=== PATIENT | female | born 1960 | race Caucasian/White ===

== ENCOUNTER 2016-06-20 08:00 | Inpatient (IN) | payer MEDICAID ==
[~2016-06-20] VITALS: Ht 167.6 cm; Wt 70.0 kg
[~2016-06-20 08:00] MED LIST: ALPR0.254 PO; CARV3.1240 PO; FURO40TA PO; GLIM1TAB2 PO; OMEP20CA5 PO; POTA10SO11 PO; RIV15T PO; RIVA20TA PO; SULF500T37 PO; TRAM50TA2 PO
[2016-06-20 09:11] LABS: Basophils # (auto) 0.1 uL; DEFINITIVE VIEW TRANSMISSION; Eosinophils # (auto) 0 uL; Eosinophils % (auto) 0.7 % (0.0-7.0); Hematocrit 45.4 % (36.0-46.0); Hemoglobin 14.8 g/dL (12.2-16.2); Lymphocytes # (auto) 0.7 uL; Lymphocytes % (auto) 12.1 % (10.0-50.0); Mean Corpuscular Hemoglobin 28.1 pg (28.0-32.0); Mean Corpuscular Hgb Conc. 32.7 g/dL (32.0-36.0); Mean Platelet Volume 8.7 fL (7.4-10.4); Monocytes # (auto) 0.8 uL; Monocytes % (auto) 12.9 % (0.0-12.0); Neutrophils # (auto) 4.3 uL; Neutrophils % (auto) 73.3 % (37.0-80.0); Platelet Count (auto) 191 10^3/uL (140-450); White Blood Cell 5.9 10^3/uL (4.4-10.8)
[2016-06-20 09:21] LABS: Red Cell Distribution Width 22.5 % (11.6-16.0)
[2016-06-20 09:28] LABS: Albumin 3.3 g/dL (3.4-5.0); BUN/Creatinine Ratio 25.3; Bilirubin, Total 1.8 mg/dL (0.2-1.0); Calcium 8.9 mg/dL (8.5-10.1); Potassium 3.9 mmol/L (3.5-5.1); Total Protein 7.4 g/dL (6.4-8.2)
[2016-06-20 10:11] LABS: Anisocytosis Slight; Platelet Estimate Adequate
[2016-06-20 11:35] LABS: INR 1.39 (0.9-1.15); Partial Thromboplastin Time 32.5 sec (22.64-33.71); Prothrombin Time 14.3 sec (9.37-12.3)
[2016-06-20] MEDS ORDERED: NITROGLYCERIN 0.4 MG SL TAB SL PRN (13:15)
[2016-06-20] MEDS ORDERED: TEMAZEPAM 15 MG CAP PO PRN (13:15)
[2016-06-20] MEDS ORDERED: MORPHINE SULF INJ 2 MG/ML SYRINGE 1ML IV PRN ×2 (13:15)
[2016-06-20] MEDS ORDERED: LORazepam 0.5 MG TAB PO PRN (13:15)
[2016-06-20] MEDS ORDERED: HYDROcodone-ACET 5/325MG TAB PO PRN (13:15)
[2016-06-20] MEDS ORDERED: ACETAMINOPHEN 500 MG TAB PO PRN (13:15)
[2016-06-20] MEDS ORDERED: PROMETHAZINE HCL 25 MG/ML 1ML IV PRN (13:15)
[2016-06-20] MEDS: FUROSEMIDE 40 MG/4 ML VIAL IV SCH (15:14)
[2016-06-20 15:15] VITALS: BP 125/95
[2016-06-20] MEDS: CARVEDILOL 3.125 MG TAB PO SCH ×2 (15:15→18:35)
[2016-06-20] MEDS: ASPirin 81 mg TAB PO SCH (15:15)
[2016-06-20] MEDS: POTASSIUM CHL 20 Meq TABLET PO SCH (15:16)
[2016-06-20] MEDS: ENALAPRIL MALEATE 2.5 MG TAB PO SCH (15:16)
[2016-06-20] MEDS: NITROGLYCERIN 0.2MG/HR TOPICAL PATCH TD SCH (15:16)
[2016-06-20 16:20] VITALS: BP 125/95
[2016-06-20] MEDS: RIVAROXABAN 20 MG TAB PO SCH (18:00)
[2016-06-20 20:00] VITALS: BP 123/79
[2016-06-20 22:00] VITALS: BP 123/79
[2016-06-21] MEDS: SULFASALAZINE 500 MG TAB PO SCH ×5 (00:21→21:37)
[2016-06-21] MEDS: ALPRAZolam 0.25 MG TAB PO SCH ×3 (00:21→21:38)
[2016-06-21 05:00] VITALS: BP 127/87
[2016-06-21 06:25] LABS: Basophils # (auto) 0.1 uL; DEFINITIVE VIEW TRANSMISSION; Eosinophils # (auto) 0.2 uL; Eosinophils % (auto) 3.1 % (0.0-7.0); Hemoglobin 13.4 g/dL (12.2-16.2); Lymphocytes % (auto) 18.4 % (10.0-50.0); Mean Corpuscular Hemoglobin 26.9 pg (28.0-32.0); Mean Corpuscular Volume 86.6 fL (80.0-100.0); Mean Platelet Volume 8.9 fL (7.4-10.4); Monocytes # (auto) 0.8 uL; Neutrophils # (auto) 3.3 uL; Neutrophils % (auto) 62.5 % (37.0-80.0); Platelet Count (auto) 172 10^3/uL (140-450); White Blood Cell 5.3 10^3/uL (4.4-10.8)
[2016-06-21 06:29] LABS: Red Cell Distribution Width 23.5 % (11.6-16.0)
[2016-06-21 06:51] LABS: Albumin 2.7 g/dL (3.4-5.0); BUN/Creatinine Ratio 21.6; Bilirubin, Total 3.7 mg/dL (0.2-1.0); Calcium 8.4 mg/dL (8.5-10.1); Potassium 3.7 mmol/L (3.5-5.1); Total Protein 6.2 g/dL (6.4-8.2)
[2016-06-21 07:13] LABS: B-Type Natriuretic Peptide 1105.6 pg/mL (0-100)
[2016-06-21 08:15] VITALS: BP 124/90
[2016-06-21 08:27] LABS: Anisocytosis Slight; Hypochromia Slight; Platelet Estimate Adequate
[2016-06-21] MEDS: FUROSEMIDE 40 MG/4 ML VIAL IV SCH (09:33)
[2016-06-21] MEDS: CARVEDILOL 3.125 MG TAB PO SCH ×2 (09:34→21:38)
[2016-06-21] MEDS: POTASSIUM CHL 20 Meq TABLET PO SCH (09:35)
[2016-06-21] MEDS: NITROGLYCERIN 0.2MG/HR TOPICAL PATCH TD SCH (09:35)
[2016-06-21] MEDS: PANTOPRAZOLE 40 MG TAB PO SCH (09:35)
[2016-06-21] MEDS: ENALAPRIL MALEATE 2.5 MG TAB PO SCH (09:36)
[2016-06-21] MEDS: ASPirin 81 mg TAB PO SCH (09:36)
[2016-06-21] MEDS: Glimepiride PO SCH (09:43)
[2016-06-21] MEDS ORDERED: PATIENTS OWN MEDICATION (xarelto 20 MG) PO SCH (10:00)
[2016-06-21 12:56] VITALS: BP 113/73
[2016-06-21 17:17] VITALS: BP 107/70
[2016-06-21] MEDS: RIVAROXABAN 20 MG TAB PO SCH (17:23)
[2016-06-21 22:00] VITALS: BP 111/75
[2016-06-22 05:00] VITALS: BP 112/73
[2016-06-22] MEDS: SULFASALAZINE 500 MG TAB PO SCH ×2 (06:05→11:46)
[2016-06-22 06:33] LABS: Basophils # (auto) 0 uL; DEFINITIVE VIEW TRANSMISSION; Eosinophils # (auto) 0.2 uL; Eosinophils % (auto) 4.2 % (0.0-7.0); Hematocrit 45.7 % (36.0-46.0); Hemoglobin 14.3 g/dL (12.2-16.2); Lymphocytes % (auto) 23.9 % (10.0-50.0); Mean Corpuscular Hemoglobin 27.4 pg (28.0-32.0); Mean Corpuscular Hgb Conc. 31.2 g/dL (32.0-36.0); Mean Corpuscular Volume 87.6 fL (80.0-100.0); Mean Platelet Volume 8.6 fL (7.4-10.4); Monocytes # (auto) 0.7 uL; Monocytes % (auto) 17.3 % (0.0-12.0); Neutrophils # (auto) 2.3 uL; Neutrophils % (auto) 53.6 % (37.0-80.0); Platelet Count (auto) 188 10^3/uL (140-450); SUSPECT VIEW TRANSMISSION; White Blood Cell 4.2 10^3/uL (4.4-10.8)
[2016-06-22 06:45] LABS: Albumin 2.9 g/dL (3.4-5.0); BUN/Creatinine Ratio 16.8; Calcium 8.8 mg/dL (8.5-10.1); Potassium 4.3 mmol/L (3.5-5.1)
[2016-06-22 06:46] LABS: Red Cell Distribution Width 23.8 % (11.6-16.0)
[2016-06-22 06:47] LABS: Bilirubin, Total 2.7 mg/dL (0.2-1.0); Total Protein 6.5 g/dL (6.4-8.2)
[2016-06-22 07:52] LABS: Platelet Estimate Adequate
[2016-06-22 07:53] LABS: Anisocytosis Slight; Poikilocytosis Slight
[2016-06-22 08:59] VITALS: BP 120/73
[2016-06-22] MEDS: FUROSEMIDE 40 MG/4 ML VIAL IV SCH (09:20)
[2016-06-22] MEDS: ENALAPRIL MALEATE 2.5 MG TAB PO SCH (09:20)
[2016-06-22] MEDS: PANTOPRAZOLE 40 MG TAB PO SCH (09:21)
[2016-06-22] MEDS: NITROGLYCERIN 0.2MG/HR TOPICAL PATCH TD SCH (09:22)
[2016-06-22] MEDS: ALPRAZolam 0.25 MG TAB PO SCH (09:22)
[2016-06-22] MEDS: POTASSIUM CHL 20 Meq TABLET PO SCH (09:22)
[2016-06-22] MEDS: CARVEDILOL 3.125 MG TAB PO SCH (09:23)
[2016-06-22] MEDS: ASPirin 81 mg TAB PO SCH (09:23)
[2016-06-22] MEDS: Glimepiride PO SCH (09:24)
[2016-06-22 12:06] LABS: Thyroid Peroxidase (TPO) Ab 6 IU/mL (0-34)
[2016-06-22 12:44] VITALS: BP 107/71
[2016-06-22 15:39] VITALS: BP 107/71
[2016-06-22 16:43] VITALS: BP 113/75
[2016-06-24 18:06] LABS: Sjogren's Anti-SS-A Antibody <0.2 AI (0.0-0.9)
== END 2016-06-22 16:50 | disposition home or self-care (01) | DRG 194 ==
LOC: ER 08:00 → TELE 08:01 → TELE-WESTW 15:28
PROVIDERS: ADMIT Internal Medicine; ATTEND Internal Medicine
DX: I11.0 Hypertensive heart disease with heart failure (principal); E44.1 Mild protein-calorie malnutrition; I27.2 Other secondary pulmonary hypertension; I42.9 Cardiomyopathy, unspecified; R21 Rash and other nonspecific skin eruption; F41.9 Anxiety disorder, unspecified; I50.43 Acute on chronic combined systolic (congestive) and diastolic (congestive) heart failure; K21.9 Gastro-esophageal reflux disease without esophagitis; Z82.3 Family history of stroke; Z86.711 Personal history of pulmonary embolism; Z68.24 Body mass index [BMI] 24.0-24.9, adult; Z95.810 Presence of automatic (implantable) cardiac defibrillator; Z88.1 Allergy status to other antibiotic agents
CPT/HCPCS: 36415; 71020; 80053; 80061; 82550; 83735; 83880; 84443; 84484; 85025; 85610; 85730; 86225; 86235; 93005

== ENCOUNTER 2016-09-22 04:57 | Inpatient (IN) | payer MEDICAID ==
[~2016-09-22] VITALS: Ht 167.6 cm; Wt 66.1 kg
[2016-09-22 05:43] LABS: Basophils # (auto) 0.1 uL; Basophils % (auto) 1.6 % (0.0-2.0); DEFINITIVE VIEW TRANSMISSION; Eosinophils # (auto) 0.1 uL; Eosinophils % (auto) 1.3 % (0.0-7.0); Hematocrit 50.1 % (36.0-46.0); Hemoglobin 16.1 g/dL (12.2-16.2); Lymphocytes # (auto) 1.3 uL; Mean Corpuscular Hemoglobin 29.8 pg (28.0-32.0); Mean Corpuscular Hgb Conc. 32.2 g/dL (32.0-36.0); Mean Corpuscular Volume 92.4 fL (80.0-100.0); Mean Platelet Volume 8.9 fL (7.4-10.4); Monocytes % (auto) 13.4 % (0.0-12.0); Neutrophils # (auto) 4.7 uL; Neutrophils % (auto) 65.7 % (37.0-80.0); Platelet Count (auto) 242 10^3/uL (140-450); Red Cell Distribution Width 19.8 % (11.6-16.0); White Blood Cell 7.1 10^3/uL (4.4-10.8)
[2016-09-22 06:01] LABS: Partial Thromboplastin Time 32.5 sec (22.64-33.71)
[2016-09-22 06:12] LABS: Albumin 3.1 g/dL (3.4-5.0); BUN/Creatinine Ratio 18.3; Calcium 8.5 mg/dL (8.5-10.1); Potassium 4.9 mmol/L (3.5-5.1)
[2016-09-22 06:17] LABS: Bilirubin, Total 1.9 mg/dL (0.2-1.0); Total Protein 7.2 g/dL (6.4-8.2)
[2016-09-22 06:27] LABS: INR 1.54 (0.9-1.15); Prothrombin Time 16.6 sec (9.37-12.3)
[2016-09-22 06:32] LABS: B-Type Natriuretic Peptide 2115.14 pg/mL (0-100)
[2016-09-22 06:33] LABS: Temperature: 22.3 C (20.0-25.0)
[2016-09-22] MEDS ORDERED: SODIUM CHLORIDE 0.9% 1,000 ML IV ONE (06:52)
[2016-09-22] MEDS ORDERED: ONDANSETRON HCL 4 MG/2 ML VIAL IV ONE (07:00)
[2016-09-22] MEDS ORDERED: FUROSEMIDE 20 MG/2 ML VIAL IV ONE (07:00)
[2016-09-22 08:17] LABS: Amylase 43 U/L (25-115)
[2016-09-22] MEDS ORDERED: IOHEXOL 350 MG/ML 100ML IJ ONE (11:52)
[2016-09-22] MEDS ORDERED: MORPHINE SULF INJ 2 MG/ML SYRINGE 1ML IV PRN ×2 (13:30)
[2016-09-22] MEDS ORDERED: HYDROcodone-ACET 5/325MG TAB PO PRN (13:30)
[2016-09-22] MEDS ORDERED: NITROGLYCERIN 0.4 MG SL TAB SL PRN (13:30)
[2016-09-22] MEDS ORDERED: DOCUSATE SOD 100 MG CAP PO PRN (13:30)
[2016-09-22] MEDS ORDERED: ONDANSETRON HCL 4 MG/2 ML VIAL IV PRN (13:30)
[2016-09-22] MEDS ORDERED: TEMAZEPAM 15 MG CAP PO PRN (13:30)
[2016-09-22] MEDS ORDERED: ACETAMINOPHEN 325 MG TAB PO PRN (13:30)
[2016-09-22] MEDS: SODIUM CHLOR 0.9% PF (SALINE LOCK) 10ML VIAL IV SCH ×2 (14:41→21:34)
[2016-09-22] MEDS ORDERED: ENALAPRIL MALEATE 2.5 MG TAB PO ONE (14:45)
[2016-09-22] MEDS: Boost Breeze 8 Ounces PO SCH (18:17)
[2016-09-22] MEDS: FUROSEMIDE 40 MG/4 ML VIAL IV SCH (18:17)
[2016-09-22] MEDS: SULFASALAZINE 500 MG TAB PO SCH ×2 (18:25→21:35)
[2016-09-22] MEDS: RIVAROXABAN 20 MG TAB PO SCH (18:25)
[2016-09-22 20:15] VITALS: BP 116/83
[2016-09-22] MEDS: FAMOTIDINE 20 MG TAB PO SCH (21:34)
[2016-09-22] MEDS: POTASSIUM CHL 20 Meq TABLET PO SCH (21:34)
[2016-09-22] MEDS: CARVEDILOL 12.5 MG TAB PO SCH (21:36)
[2016-09-22 21:41] LABS: Urine Bilirubin Negative (Negative); Urine Blood Negative /uL (Negative); Urine Color Yellow (Yellow); Urine Glucose Normal (Normal); Urine Ketone Negative (Negative); Urine Nitrite Negative (Negative); Urine RBC <1 /hpf (0 - 4); Urine Squamous Epithelial Cell FEW /hpf (<5); Urine Urobilinogen Normal (Negative)
[2016-09-22 22:10] VITALS: BP 116/83
[2016-09-23] MEDS ORDERED: ENAL2.5T PO (01:09)
[2016-09-23 05:27] VITALS: BP 106/84
[2016-09-23] MEDS: SULFASALAZINE 500 MG TAB PO SCH ×4 (05:47→23:18)
[2016-09-23] MEDS: FUROSEMIDE 40 MG/4 ML VIAL IV SCH ×2 (05:48→17:47)
[2016-09-23] MEDS: SODIUM CHLOR 0.9% PF (SALINE LOCK) 10ML VIAL IV SCH ×3 (05:48→23:18)
[2016-09-23 06:54] LABS: Basophils # (auto) 0 uL; Basophils % (auto) 0.9 % (0.0-2.0); DEFINITIVE VIEW TRANSMISSION; Eosinophils # (auto) 0.2 uL; Eosinophils % (auto) 3.1 % (0.0-7.0); Hematocrit 47.4 % (36.0-46.0); Hemoglobin 15.3 g/dL (12.2-16.2); Lymphocytes # (auto) 1.6 uL; Mean Corpuscular Hemoglobin 29.8 pg (28.0-32.0); Mean Corpuscular Hgb Conc. 32.4 g/dL (32.0-36.0); Mean Corpuscular Volume 92.1 fL (80.0-100.0); Monocytes # (auto) 0.9 uL; Monocytes % (auto) 17.7 % (0.0-12.0); Neutrophils # (auto) 2.3 uL; Neutrophils % (auto) 46.3 % (37.0-80.0); Platelet Count (auto) 219 10^3/uL (140-450); Red Cell Distribution Width 19.9 % (11.6-16.0); White Blood Cell 5.1 10^3/uL (4.4-10.8)
[2016-09-23 07:20] LABS: Albumin 2.7 g/dL (3.4-5.0); Calcium 8.2 mg/dL (8.5-10.1)
[2016-09-23 07:22] LABS: BUN/Creatinine Ratio 17.9
[2016-09-23 07:25] LABS: Bilirubin, Total 2.3 mg/dL (0.2-1.0); Total Protein 6.2 g/dL (6.4-8.2)
[2016-09-23] MEDS: Boost Breeze 8 Ounces PO SCH ×3 (08:00→18:00)
[2016-09-23 09:00] VITALS: BP 113/76
[2016-09-23] MEDS: CARVEDILOL 12.5 MG TAB PO SCH ×2 (10:00→23:17)
[2016-09-23] MEDS ORDERED: PATIENTS OWN MEDICATION PO SCH ×2 (10:00)
[2016-09-23] MEDS: MULTIPLE VITAMIN TAB PO SCH (10:02)
[2016-09-23] MEDS: POTASSIUM CHL 20 Meq TABLET PO SCH ×2 (10:03→23:16)
[2016-09-23] MEDS: FAMOTIDINE 20 MG TAB PO SCH ×2 (10:03→23:16)
[2016-09-23] MEDS: ENALAPRIL MALEATE 2.5 MG TAB PO SCH (10:05)
[2016-09-23 13:00] VITALS: BP 165/99
[2016-09-23 17:53] VITALS: BP 122/85
[2016-09-23] MEDS: RIVAROXABAN 20 MG TAB PO SCH (20:10)
[2016-09-23 22:00] VITALS: BP 118/67
[2016-09-24 05:00] VITALS: BP 109/73
[2016-09-24] MEDS: FUROSEMIDE 40 MG/4 ML VIAL IV SCH (05:50)
[2016-09-24] MEDS: SODIUM CHLOR 0.9% PF (SALINE LOCK) 10ML VIAL IV SCH (05:50)
[2016-09-24] MEDS: SULFASALAZINE 500 MG TAB PO SCH (05:50)
[2016-09-24 08:30] VITALS: BP 111/73
[2016-09-24] MEDS: ENALAPRIL MALEATE 2.5 MG TAB PO SCH (10:00)
[2016-09-24] MEDS: CARVEDILOL 12.5 MG TAB PO SCH (10:00)
[2016-09-24] MEDS: MULTIPLE VITAMIN TAB PO SCH (10:07)
[2016-09-24] MEDS: POTASSIUM CHL 20 Meq TABLET PO SCH (10:07)
[2016-09-24] MEDS: FAMOTIDINE 20 MG TAB PO SCH (10:07)
[2016-09-24] MEDS: Boost Breeze 8 Ounces PO SCH (10:07)
[2016-09-24 10:20] VITALS: BP 111/73
== END 2016-09-24 11:02 | disposition home or self-care (01) | DRG 194 ==
LOC: ER 05:02 → TELE 05:03 → TELE-WESTW 20:02
PROVIDERS: ADMIT Internal Medicine; ATTEND Internal Medicine
DX: I13.0 Hypertensive heart and chronic kidney disease with heart failure and stage 1 through stage 4 chronic kidney disease, or unspecified chronic kidney disease (principal); D68.9 Coagulation defect, unspecified; E44.0 Moderate protein-calorie malnutrition; I42.9 Cardiomyopathy, unspecified; F41.9 Anxiety disorder, unspecified; K21.9 Gastro-esophageal reflux disease without esophagitis; N18.2 Chronic kidney disease, stage 2 (mild); I50.43 Acute on chronic combined systolic (congestive) and diastolic (congestive) heart failure; Z82.3 Family history of stroke; Z86.711 Personal history of pulmonary embolism; I82.509 Chronic embolism and thrombosis of unspecified deep veins of unspecified lower extremity
CPT/HCPCS: 36415; 71010; 71275; 80053; 81001; 82150; 83690; 83880; 84484; 85025; 85379; 85610; 85730; 93005; 93970; 96374; 96375; 99291; J2405

== ENCOUNTER 2016-11-29 04:52 | Inpatient (IN) | payer MEDICAID ==
[~2016-11-29] VITALS: Ht 167.6 cm; Wt 68.6 kg
[~2016-11-29 04:52] MED LIST changes: +ENAL2.5T PO; -OMEP20CA5 PO; +OMEP20CA74 PO; -RIV15T PO
[2016-11-29 06:54] LABS: Urine RBC None Seen /hpf (0 - 4)
[2016-11-29 07:12] LABS: Urine Bilirubin Negative (Negative); Urine Blood Negative /uL (Negative); Urine Color Yellow (Yellow); Urine Glucose Normal (Normal); Urine Ketone Negative (Negative); Urine Mucus FEW (None Seen); Urine Nitrite Negative (Negative); Urine Squamous Epithelial Cell FEW /hpf (<5); Urine Urobilinogen Normal (Negative)
[2016-11-29 07:43] LABS: Basophils # (auto) 0 uL; Basophils % (auto) 0.7 % (0.0-2.0); CONDITION Y; Eosinophils # (auto) 0.1 uL; Eosinophils % (auto) 0.9 % (0.0-7.0); Hematocrit 50.8 % (36.0-46.0); Hemoglobin 16.7 g/dL (12.2-16.2); Lymphocytes # (auto) 1.1 uL; Lymphocytes % (auto) 16.2 % (10.0-50.0); Mean Corpuscular Hemoglobin 29.4 pg (28.0-32.0); Mean Corpuscular Hgb Conc. 32.9 g/dL (32.0-36.0); Mean Corpuscular Volume 89.5 fL (80.0-100.0); Mean Platelet Volume 8.6 fL (7.4-10.4); Monocytes % (auto) 14.3 % (0.0-12.0); Neutrophils # (auto) 4.6 uL; Neutrophils % (auto) 67.9 % (37.0-80.0); Platelet Count (auto) 235 10^3/uL (140-450); Red Cell Distribution Width 18.5 % (11.6-16.0); White Blood Cell 6.8 10^3/uL (4.4-10.8)
[2016-11-29 08:05] LABS: Albumin 2.8 g/dL (3.4-5.0); BUN/Creatinine Ratio 22.7; Calcium 8.5 mg/dL (8.5-10.1); Magnesium 2.1 mg/dL (1.6-2.6)
[2016-11-29 08:07] LABS: Bilirubin, Total 2.2 mg/dL (0.2-1.0); Total Protein 7.2 g/dL (6.4-8.2)
[2016-11-29 08:13] LABS: Potassium 6.2 mmol/L (3.5-5.1)
[2016-11-29] MEDS ORDERED: SODIUM BICARBONATE 8.4% INJ 50ML SYRINGE ONE (08:26)
[2016-11-29] MEDS ORDERED: SODIUM CHLORIDE 0.9% 1,000 ML IV ONE (08:27)
[2016-11-29] MEDS ORDERED: SODIUM BICARBONATE 8.4 % INJ 50ML VIAL IV ONE (08:30)
[2016-11-29] MEDS ORDERED: ONDANSETRON HCL 4 MG/2 ML VIAL IV ONE (08:30)
[2016-11-29] MEDS ORDERED: FUROSEMIDE 40 MG/4 ML VIAL IV ONE (08:30)
[2016-11-29] MEDS ORDERED: CALCIUM CHL 100MG/ML 1,000 MG in D5W 5% 100 ML IV ONE (08:30)
[2016-11-29 09:33] LABS: B-Type Natriuretic Peptide 1825.24 pg/mL (0-100)
[2016-11-29 09:38] LABS: Temperature: 24.8 C (20.0-25.0)
[2016-11-29] MEDS ORDERED: IOHEXOL 350 MG/ML 100ML IJ ONE (10:19)
[2016-11-29] MEDS ORDERED: traMADol HCL 50 MG TAB PO PRN (12:15)
[2016-11-29] MEDS ORDERED: CARVEDILOL 3.125 MG TAB PO ONE (12:15)
[2016-11-29] MEDS ORDERED: MORPHINE SULFATE 4 MG/ML SYRG IV PRN (12:15)
[2016-11-29] MEDS ORDERED: NITROGLYCERIN 0.4 MG SL TAB SL PRN (12:15)
[2016-11-29] MEDS ORDERED: ALPRAZolam 0.25 MG TAB PO PRN (12:15)
[2016-11-29] MEDS ORDERED: TEMAZEPAM 15 MG CAP PO PRN (12:15)
[2016-11-29] MEDS ORDERED: MORPHINE SULF INJ 2 MG/ML SYRINGE 1ML IV PRN ×2 (12:15)
[2016-11-29] MEDS ORDERED: DEXTROSE (50%) 50ML SYRG IV PRN (12:15)
[2016-11-29 12:22] LABS: Amylase 30 U/L (25-115)
[2016-11-29] MEDS ORDERED: SODIUM POLYSTYRENE SULF 15GM/60ML SUSP PO ONE (12:30)
[2016-11-29] MEDS ORDERED: PANTOPRAZOLE 40 MG TAB PO ONE (12:30)
[2016-11-29] MEDS ORDERED: GLIMEPIRIDE 2 MG TAB PO ONE (12:30)
[2016-11-29] MEDS: SULFASALAZINE 500 MG TAB PO SCH ×3 (13:24→22:29)
[2016-11-29 17:37] LABS: Albumin 2.9 g/dL (3.4-5.0); BUN/Creatinine Ratio 17.5; Bilirubin, Total 2.6 mg/dL (0.2-1.0); Calcium 9.1 mg/dL (8.5-10.1); Potassium 3.7 mmol/L (3.5-5.1); Total Protein 6.7 g/dL (6.4-8.2)
[2016-11-29] MEDS: ACCU-CHEK COMFORT CURVE STRIP VI SCH (18:42)
[2016-11-29] MEDS: InsuLIN REG 1unit/0.01ml Soln (100units/ml) SC SCH (18:42)
[2016-11-29] MEDS: RIVAROXABAN 20 MG TAB PO SCH (18:49)
[2016-11-29] MEDS ORDERED: ONDANSETRON HCL 4 MG/2 ML VIAL IV PRN (21:15)
[2016-11-29] MEDS ORDERED: ONDANSETRON HCL 4 MG/2 ML VIAL ONE (21:17)
[2016-11-29] MEDS ORDERED: POTASSIUM CHL 10% (20 MEQ/15ML) ORAL SOLN PO SCH (22:00)
[2016-11-29] MEDS: FUROSEMIDE 40 MG/4 ML VIAL IV SCH (22:29)
[2016-11-29] MEDS: CARVEDILOL 3.125 MG TAB PO SCH (22:29)
[2016-11-30] MEDS: ACCU-CHEK COMFORT CURVE STRIP VI SCH ×5 (00:15→23:29)
[2016-11-30] MEDS: SULFASALAZINE 500 MG TAB PO SCH ×4 (06:00→21:58)
[2016-11-30] MEDS: InsuLIN REG 1unit/0.01ml Soln (100units/ml) SC SCH ×5 (06:00→23:29)
[2016-11-30 06:46] LABS: Basophils # (auto) 0 uL; Basophils % (auto) 0.5 % (0.0-2.0); CONDITION Y; Eosinophils # (auto) 0.1 uL; Eosinophils % (auto) 1.7 % (0.0-7.0); Hematocrit 47.8 % (36.0-46.0); Hemoglobin 15.7 g/dL (12.2-16.2); Lymphocytes # (auto) 1.1 uL; Lymphocytes % (auto) 17.7 % (10.0-50.0); Mean Corpuscular Hemoglobin 29.6 pg (28.0-32.0); Mean Corpuscular Hgb Conc. 32.9 g/dL (32.0-36.0); Mean Platelet Volume 9.1 fL (7.4-10.4); Monocytes # (auto) 0.9 uL; Monocytes % (auto) 14.5 % (0.0-12.0); Neutrophils # (auto) 4.1 uL; Neutrophils % (auto) 65.6 % (37.0-80.0); Platelet Count (auto) 224 10^3/uL (140-450); Red Cell Distribution Width 18.9 % (11.6-16.0); White Blood Cell 6.2 10^3/uL (4.4-10.8)
[2016-11-30 07:18] LABS: Albumin 2.7 g/dL (3.4-5.0); BUN/Creatinine Ratio 17.7; Bilirubin, Total 2.7 mg/dL (0.2-1.0); Calcium 8.6 mg/dL (8.5-10.1); Potassium 3.6 mmol/L (3.5-5.1); Total Protein 6.3 g/dL (6.4-8.2)
[2016-11-30 07:23] LABS: B-Type Natriuretic Peptide 1486.33 pg/mL (0-100)
[2016-11-30 07:34] LABS: Temperature: 24.3 C (20.0-25.0)
[2016-11-30] MEDS ORDERED: ENALAPRIL MALEATE 2.5 MG TAB PO SCH (10:00)
[2016-11-30] MEDS: FUROSEMIDE 40 MG/4 ML VIAL IV SCH ×2 (10:04→21:59)
[2016-11-30] MEDS: GLIMEPIRIDE 2 MG TAB PO SCH (10:04)
[2016-11-30] MEDS: NITROGLYCERIN 0.2MG/HR TOPICAL PATCH TD SCH (10:09)
[2016-11-30] MEDS: CARVEDILOL 3.125 MG TAB PO SCH ×2 (10:09→21:58)
[2016-11-30] MEDS: PANTOPRAZOLE 40 MG TAB PO SCH (10:09)
[2016-11-30 15:45] VITALS: BP 101/65
[2016-11-30 17:00] VITALS: BP 126/80
[2016-11-30] MEDS: RIVAROXABAN 20 MG TAB PO SCH (18:12)
[2016-11-30 20:00] VITALS: BP 116/66
[2016-11-30 22:00] VITALS: BP 116/66
[2016-12-01] VITALS (7 sets, daily range): BP systolic 94–111; BP diastolic 61–80
[2016-12-01] MEDS: SULFASALAZINE 500 MG TAB PO SCH ×4 (05:31→22:08)
[2016-12-01] MEDS: ACCU-CHEK COMFORT CURVE STRIP VI SCH ×4 (06:00→22:06)
[2016-12-01] MEDS: InsuLIN REG 1unit/0.01ml Soln (100units/ml) SC SCH ×4 (06:00→22:09)
[2016-12-01] MEDS: PANTOPRAZOLE 40 MG TAB PO SCH (09:50)
[2016-12-01] MEDS: CARVEDILOL 3.125 MG TAB PO SCH ×2 (09:50→22:08)
[2016-12-01] MEDS: FUROSEMIDE 40 MG/4 ML VIAL IV SCH ×2 (09:51→22:09)
[2016-12-01] MEDS: GLIMEPIRIDE 2 MG TAB PO SCH (09:52)
[2016-12-01] MEDS: NITROGLYCERIN 0.2MG/HR TOPICAL PATCH TD SCH (10:00)
[2016-12-01] MEDS: RIVAROXABAN 20 MG TAB PO SCH (18:23)
[2016-12-01] MEDS ORDERED: POTASSIUM CHL 20 Meq TABLET PO ONE (18:30)
[2016-12-01] MEDS: MAGNESIUM OXIDE 400 MG TAB PO SCH (22:08)
[2016-12-02 05:00] VITALS: BP 118/79
[2016-12-02] MEDS: InsuLIN REG 1unit/0.01ml Soln (100units/ml) SC SCH ×3 (06:00→18:00)
[2016-12-02] MEDS: ACCU-CHEK COMFORT CURVE STRIP VI SCH ×3 (06:06→18:00)
[2016-12-02] MEDS: SULFASALAZINE 500 MG TAB PO SCH ×3 (06:07→18:00)
[2016-12-02 08:00] VITALS: BP 103/77
[2016-12-02 09:00] VITALS: BP 103/77
[2016-12-02] MEDS: NITROGLYCERIN 0.2MG/HR TOPICAL PATCH TD SCH (10:00)
[2016-12-02] MEDS: CARVEDILOL 3.125 MG TAB PO SCH (10:00)
[2016-12-02] MEDS: GLIMEPIRIDE 2 MG TAB PO SCH (10:00)
[2016-12-02] MEDS: PANTOPRAZOLE 40 MG TAB PO SCH (11:33)
[2016-12-02] MEDS: FUROSEMIDE 40 MG/4 ML VIAL IV SCH (11:33)
[2016-12-02] MEDS: MAGNESIUM OXIDE 400 MG TAB PO SCH (11:33)
[2016-12-02 13:00] VITALS: BP 101/67
[2016-12-02 16:59] VITALS: BP 101/67
[2016-12-02 17:00] VITALS: BP 111/79
[2016-12-02] MEDS: RIVAROXABAN 20 MG TAB PO SCH (18:00)
== END 2016-12-02 18:34 | disposition home or self-care (01) | DRG 194 ==
LOC: ER 04:52 → TELE 04:53 → TELE-EAST 11-30 16:27
PROVIDERS: ADMIT Internal Medicine; ATTEND Internal Medicine
DX: I11.0 Hypertensive heart disease with heart failure (principal); I47.2 Ventricular tachycardia; E44.0 Moderate protein-calorie malnutrition; E87.5 Hyperkalemia; K51.90 Ulcerative colitis, unspecified, without complications; R17 Unspecified jaundice; I42.0 Dilated cardiomyopathy; I50.43 Acute on chronic combined systolic (congestive) and diastolic (congestive) heart failure; R10.9 Unspecified abdominal pain; K21.9 Gastro-esophageal reflux disease without esophagitis; E11.9 Type 2 diabetes mellitus without complications; Z86.711 Personal history of pulmonary embolism; E03.9 Hypothyroidism, unspecified; Z68.24 Body mass index [BMI] 24.0-24.9, adult; E87.6 Hypokalemia; Z82.3 Family history of stroke; Z82.49 Family history of ischemic heart disease and other diseases of the circulatory system; Z95.810 Presence of automatic (implantable) cardiac defibrillator; F41.9 Anxiety disorder, unspecified; Z88.1 Allergy status to other antibiotic agents; Z71.89 Other specified counseling
CPT/HCPCS: 36415; 71010; 71020; 71275; 74176; 76705; 80053; 80061; 81001; 82150; 82550; 82962; 83036; 83690; 83735; 83880; 84443; 84484; 85025; 85379; 85652; 87493; 93005; 94761; 96361; 96374; 96375; 96376; J1815; J2405; J7060

== ENCOUNTER 2017-05-22 01:08 | Emergency (ER) | payer MEDICAID ==
[~2017-05-22] VITALS: Ht 167.6 cm; Wt 71.8 kg
[~2017-05-22 01:08] MED LIST changes: -ENAL2.5T PO; -GLIM1TAB2 PO; -OMEP20CA74 PO; -TRAM50TA2 PO
[2017-05-22 02:26] LABS: Hematocrit 44.1 % (36.0-46.0); Hemoglobin 14.4 g/dL (12.2-16.2); Mean Corpuscular Hemoglobin 29.8 pg (28.0-32.0); Mean Corpuscular Hgb Conc. 32.6 g/dL (32.0-36.0); Mean Corpuscular Volume 91.4 fL (80.0-100.0); Platelet Count (auto) 221 10^3/uL (140-450); Red Blood Cells 4.82 10^6/uL (4.0-5.20); Red Cell Distribution Width 19.1 % (11.8-14.3); White Blood Cell 4.5 10^3/uL (4.4-10.8)
[2017-05-22 02:36] LABS: Basophils % (manual) 0 (0.0-2.0); Blast Cells 0; Metamyelocytes % 0; Myelocytes % 0; Promyelocytes % 0; Reactive Lymphocytes 0
[2017-05-22 02:55] LABS: Band Neutrophils % (manual) 1; Eosinophils % (manual) 5 (0-7); Lymphocytes % (manual) 19 (10.0-50.0); Monocytes % (manual) 10 (0-12)
[2017-05-22 02:59] LABS: Albumin 2.8 g/dL (3.4-5.0); BUN/Creatinine Ratio 16.9; Calcium 8.3 mg/dL (8.5-10.1); Potassium 4.1 mmol/L (3.5-5.1)
[2017-05-22] MEDS ORDERED: HYDROcodone-ACET 5/325MG TAB PO ONE (03:00)
[2017-05-22 03:02] LABS: Bilirubin, Total 1.6 mg/dL (0.2-1.0); Total Protein 7.2 g/dL (6.4-8.2)
[2017-05-22 04:24] VITALS: BP 117/78
[2017-05-22] MEDS ORDERED: FUROSEMIDE 40 MG TAB PO ONE (04:45)
== END 2017-05-22 05:44 | disposition home or self-care (01) ==
LOC: ER 01:08
DX: I80.3 Phlebitis and thrombophlebitis of lower extremities, unspecified (principal); I11.0 Hypertensive heart disease with heart failure; I50.43 Acute on chronic combined systolic (congestive) and diastolic (congestive) heart failure; K21.9 Gastro-esophageal reflux disease without esophagitis; Z95.0 Presence of cardiac pacemaker; Z88.1 Allergy status to other antibiotic agents; Z88.8 Allergy status to other drugs, medicaments and biological substances
CPT/HCPCS: 36415; 80053; 83880; 84702; 85007; 85027; 85379; 93005; 93971

== ENCOUNTER 2017-08-20 23:22 | Emergency (ER) | payer MEDICAID ==
[~2017-08-20] VITALS: Ht 167.6 cm; Wt 68.0 kg
[2017-08-21 00:16] LABS: Basophils # (auto) 0 uL; Basophils % (auto) 0.2 % (0.0-2.0); Eosinophils # (auto) 0.2 uL; Eosinophils % (auto) 3.9 % (0.0-7.0); Hematocrit 43.3 % (36.0-46.0); Lymphocytes # (auto) 1.1 uL; Lymphocytes % (auto) 25.1 % (10.0-50.0); Mean Corpuscular Hemoglobin 29.8 pg (28.0-32.0); Mean Corpuscular Hgb Conc. 32.4 g/dL (32.0-36.0); Mean Corpuscular Volume 92.1 fL (80.0-100.0); Monocytes # (auto) 0.6 uL; Monocytes % (auto) 13.7 % (0.0-12.0); Neutrophils # (auto) 2.5 uL; Neutrophils % (auto) 57.1 % (37.0-80.0); Nucleated Red Blood Cells % 0.3 %; Platelet Count (auto) 168 10^3/uL (140-450); Red Cell Distribution Width 19.5 % (11.8-14.3); White Blood Cell 4.4 10^3/uL (4.4-10.8)
[2017-08-21 00:32] LABS: Alanine Aminotransferase 30 U/L (13-56); Albumin 3.2 g/dL (3.4-5.0); Anion Gap 7 (5-15); Aspartate Aminotransferase 53 U/L (15-37); BUN/Creatinine Ratio 18.2; Blood Urea Nitrogen 12 mg/dL (7-18); Calcium 8.3 mg/dL (8.5-10.1); Carbon Dioxide 26 mmol/L (21-32); Chloride 107 mmol/L (98-107); GFR African American 120 mL/min; GFR Non-African American 99 mL/min; Glucose 83 mg/dL (74-106); Lipase 98 U/L (73-393); Magnesium 1.9 mg/dL (1.6-2.6); Potassium 4.2 mmol/L (3.5-5.1); Sodium 140 mmol/L (136-145)
[2017-08-21 00:37] LABS: Alkaline Phosphatase 205 U/L (45-117); Bilirubin, Total 2.5 mg/dL (0.2-1.0); Total Protein 7.5 g/dL (6.4-8.2)
[2017-08-21 00:53] LABS: Urine Bacteria NONE SEEN /hpf (None Seen); Urine Blood Negative /uL (Negative); Urine Specific Gravity 1.005 (1.001-1.035); Urine WBC 1 /hpf (0 - 5)
[2017-08-21] MEDS ORDERED: ONDANSETRON ODT 4 MG TAB PO ONE ×2 (07:15→07:45)
[2017-08-21] MEDS ORDERED: FUROSEMIDE 20 MG TAB PO ONE (07:45)
[2017-08-21] MEDS ORDERED: DICYCLOMINE HCL 10 MG CAP PO ONE (07:45)
[2017-08-21 07:49] VITALS: BP 130/92
== END 2017-08-21 08:09 | disposition home or self-care (01) ==
LOC: ER 23:22
DX: N20.0 Calculus of kidney (principal); K42.9 Umbilical hernia without obstruction or gangrene; N28.1 Cyst of kidney, acquired; N28.89 Other specified disorders of kidney and ureter; I11.0 Hypertensive heart disease with heart failure; I50.9 Heart failure, unspecified; K21.9 Gastro-esophageal reflux disease without esophagitis; Z95.0 Presence of cardiac pacemaker; Z88.1 Allergy status to other antibiotic agents; Z88.6 Allergy status to analgesic agent
CPT/HCPCS: 36415; 74176; 80053; 81001; 83690; 83735; 83880; 84484; 85025; 93005; 99285; Q0162

== ENCOUNTER 2018-08-26 10:27 | Emergency (ER) | payer MEDICAID ==
[~2018-08-26] VITALS: Ht 167.6 cm; Wt 77.1 kg
[2018-08-26] MEDS ORDERED: SODIUM CHLORIDE 0.9% 1,000 ML IV ONE (10:47)
[2018-08-26] MEDS ORDERED: TETANUS-DIPTH-ACEL PERTUSSIS 0.5ML SYRG IM ONE (11:00)
[2018-08-26 11:37] LABS: Basophils # (auto) 0.1 uL; Eosinophils # (auto) 0.2 uL; Hemoglobin 15.8 g/dL (12.2-16.2); Nucleated Red Blood Cells % 0.1 %
[2018-08-26 11:39] LABS: Basophils % (auto) 2.9 % (0.0-2.0); Eosinophils % (auto) 4.7 % (0.0-7.0); Hematocrit 46.8 % (36.0-46.0); Lymphocytes # (auto) 0.6 uL; Lymphocytes % (auto) 12.5 % (10.0-50.0); Mean Corpuscular Hemoglobin 35.3 pg (28.0-32.0); Mean Corpuscular Hgb Conc. 33.8 g/dL (32.0-36.0); Mean Corpuscular Volume 104.4 fL (80.0-100.0); Monocytes # (auto) 0.7 uL; Monocytes % (auto) 14.2 % (0.0-12.0); Neutrophils # (auto) 3.3 uL; Neutrophils % (auto) 65.7 % (37.0-80.0); Platelet Count (auto) 115 10^3/uL (140-450); Red Blood Cells 4.48 10^6/uL (4.0-5.20); Red Cell Distribution Width 13.7 % (11.8-14.3)
[2018-08-26 11:52] LABS: Partial Thromboplastin Time 27.3 sec (23.78-33.04); Prothrombin Time 10.7 sec (9.27-12.13)
[2018-08-26 12:01] LABS: Albumin 3.7 g/dL (3.4-5.0); Anion Gap 8 (5-15); Blood Urea Nitrogen 14 mg/dL (7-18); Calcium 8.7 mg/dL (8.5-10.1); Carbon Dioxide 27 mmol/L (21-32); Chloride 104 mmol/L (98-107); Glucose 97 mg/dL (74-106); Magnesium 2.1 mg/dL (1.6-2.6); Potassium 3.9 mmol/L (3.5-5.1); Sodium 139 mmol/L (136-145)
[2018-08-26 12:07] LABS: Alanine Aminotransferase 97 U/L (13-56); Alkaline Phosphatase 151 U/L (45-117); Aspartate Aminotransferase 329 U/L (15-37); BUN/Creatinine Ratio 18.2; Bilirubin, Total 1.4 mg/dL (0.2-1.0); GFR African American 100 mL/min; GFR Non-African American 83 mL/min; Total Protein 7.9 g/dL (6.4-8.2)
[2018-08-26 15:43] LABS: Urine Bacteria FEW /hpf (None Seen); Urine Blood 1+ /uL (Negative); Urine Specific Gravity 1.019 (1.001-1.035); Urine WBC 21 /hpf (0 - 5)
[2018-08-26] MEDS ORDERED: ONDANSETRON HCL 4 MG/2 ML VIAL IV ONE ×2 (16:45→17:00)
[2018-08-26] MEDS ORDERED: cloNIDine HCL 0.1 MG TAB PO ONE (17:00)
[2018-08-26 17:05] VITALS: BP 145/99
== END 2018-08-26 17:28 | disposition short-term general hospital (02) ==
LOC: ER 10:27 → EDBD 10:27 → ER 17:28
DX: S00.03XA Contusion of scalp, initial encounter (principal); R55 Syncope and collapse; F10.129 Alcohol abuse with intoxication, unspecified; I11.0 Hypertensive heart disease with heart failure; I50.9 Heart failure, unspecified; K21.9 Gastro-esophageal reflux disease without esophagitis; R42 Dizziness and giddiness; Z95.0 Presence of cardiac pacemaker; Z86.711 Personal history of pulmonary embolism; Z88.1 Allergy status to other antibiotic agents; W18.39XA Other fall on same level, initial encounter; Y93.89 Activity, other specified; Y92.89 Other specified places as the place of occurrence of the external cause; Y99.8 Other external cause status; Y90.8 Blood alcohol level of 240 mg/100 ml or more
CPT/HCPCS: 36415; 70450; 70486; 80053; 80320; 81001; 83735; 84484; 85025; 85610; 85730; 93005; 94761; 96361; 96374; 99285; J2405

== ENCOUNTER 2018-12-18 19:29 | Inpatient (IN) | payer MEDICAID ==
[~2018-12-18] VITALS: Ht 167.6 cm; Wt 79.8 kg
[~2018-12-18 19:29] MED LIST changes: +FURO1TAB31 PO; -FURO40TA PO
[2018-12-18 20:41] LABS: Urine Bacteria FEW /hpf (None Seen); Urine Blood TRACE /uL (Negative); Urine Hyaline Cast FEW /lpf (0 - 2); Urine Mucus FEW (None Seen); Urine Specific Gravity 1.028 (1.001-1.035); Urine WBC 10 /hpf (0 - 5)
[2018-12-18 20:49] LABS: Barbiturate Scree,Urine NEGATIVE (NEGATIVE); Benzodiazephine Screen, Urine NEGATIVE (NEGATIVE); Cannabinoid Screen, Urine NEGATIVE (NEGATIVE); Cocaine Screen, Urine NEGATIVE (NEGATIVE); Opiate Scree,Urine NEGATIVE (NEGATIVE); Phencyclidine Screen, Urine NEGATIVE (NEGATIVE)
[2018-12-18 20:56] LABS: Amphetamine Screen, Urine NEGATIVE (NEGATIVE)
[2018-12-18 21:03] LABS: Basophils # (auto) 0.1 uL; Eosinophils # (auto) 0 uL; Eosinophils % (auto) 0.6 % (0.0-7.0); Hematocrit 48.1 % (36.0-46.0); Hemoglobin 15.9 g/dL (12.2-16.2); Lymphocytes # (auto) 0.5 uL; Lymphocytes % (auto) 9.3 % (10.0-50.0); Mean Corpuscular Hemoglobin 33.4 pg (28.0-32.0); Mean Corpuscular Hgb Conc. 33.1 g/dL (32.0-36.0); Mean Corpuscular Volume 100.8 fL (80.0-100.0); Monocytes # (auto) 0.4 uL; Monocytes % (auto) 7.5 % (0.0-12.0); Neutrophils # (auto) 4.3 uL; Neutrophils % (auto) 81.6 % (37.0-80.0); Nucleated Red Blood Cells % 0.1 %; Platelet Count (auto) 134 10^3/uL (140-450); Red Blood Cells 4.77 10^6/uL (4.0-5.20); White Blood Cell 5.3 10^3/uL (4.4-10.8)
[2018-12-18] MEDS ORDERED: ONDANSETRON HCL 4 MG/2 ML VIAL IV ONE (21:15)
[2018-12-18] MEDS ORDERED: SODIUM CHLORIDE 0.9% 500 ML IV ONE (21:15)
[2018-12-18 21:18] LABS: INR 0.96 (0.9-1.15); Partial Thromboplastin Time 26.5 sec (23.64-32.05)
[2018-12-18 21:21] LABS: Albumin 3.9 g/dL (3.4-5.0); Calcium 8.8 mg/dL (8.5-10.1); Magnesium 2.1 mg/dL (1.6-2.6)
[2018-12-18 21:29] LABS: BUN/Creatinine Ratio 20.7; Bilirubin, Total 1.1 mg/dL (0.2-1.0); Total Protein 8.5 g/dL (6.4-8.2)
[2018-12-18] MEDS ORDERED: ASPirin-EC 81 mg tab PO ONE (21:45)
[2018-12-18] MEDS ORDERED: MORPHINE SULF INJ 2 MG/ML SYRINGE 1ML IV PRN (22:15)
[2018-12-18] MEDS ORDERED: ACETAMINOPHEN 325 MG TAB PO PRN (22:15)
[2018-12-18] MEDS ORDERED: NITROGLYCERIN 0.4 MG SL TAB SL PRN (22:15)
[2018-12-18] MEDS ORDERED: DEXTROSE (50%) 50ML SYRG IV PRN (22:15)
[2018-12-18] MEDS ORDERED: ONDANSETRON HCL 4 MG/2 ML VIAL IV PRN (22:15)
[2018-12-18] MEDS ORDERED: TEMAZEPAM 15 MG CAP PO PRN (22:15)
[2018-12-18] MEDS ORDERED: PROMETHAZINE HCL 25 MG/ML 1ML IV ONE (22:15)
[2018-12-18] MEDS ORDERED: HYDROcodone-ACET 5/325MG TAB PO PRN (22:15)
[2018-12-18] MEDS ORDERED: ENOXAPARIN SOD 100 MG/1 ML SYRINGE SC ONE (22:15)
[2018-12-18] MEDS ORDERED: cloNIDine HCL 0.1 MG TAB PO PRN (22:15)
--- NOTE | 2018-12-18 23:50 | NUR ---
Telemetry admit from ER LUKASMONA admitted to Telemetry room 280B. Patient oriented to GUY PENDLETON, primary RN, unit, room, bed, and unit policies regarding patient care and visiting hours. Patient now on continuous telemetry monitoring, tele box # [id number] and telemetry reading on arrival to unit is [facility]. Patient weighed by bedscale and encouraged to call if they need something. All questions and concerns addressed, patient verbalized understanding.
[2018-12-18 23:55] VITALS: BP 135/97
[2018-12-19] VITALS: BP 135/97
[2018-12-19] MEDS ORDERED: InsuLIN REG 1unit/0.01ml Soln (100units/ml) SC SCH
[2018-12-19] MEDS ORDERED: ACCU-CHEK COMFORT CURVE STRIP VI SCH
--- NOTE | 2018-12-19 01:08 | NUR ---
Critical Trop 1.530 Paged Hospitalist Jourdan for critical Trop of 1.530
--- NOTE | 2018-12-19 01:22 | NUR ---
Jourdan called back Informed of current Trop of 1.530 Jourdan asked if patient received any lovenox , confirmed patient received 80 Mg while in ER. Asked if patient can have ice chips Okay added to NPO diet order. Jourdan said, "yes" No other orders at this time.
[2018-12-19] MEDS ORDERED: NITROFURANTOIN (MONO) 100 mg CAP PO ONE (02:00)
[2018-12-19 05:00] VITALS: BP 123/78
[2018-12-19 06:05] LABS: Basophils # (auto) 0 uL; Basophils % (auto) 0.8 % (0.0-2.0); Eosinophils # (auto) 0.1 uL; Eosinophils % (auto) 1.4 % (0.0-7.0); Hematocrit 42.1 % (36.0-46.0); Hemoglobin 14.3 g/dL (12.2-16.2); Lymphocytes # (auto) 0.8 uL; Lymphocytes % (auto) 17.4 % (10.0-50.0); Monocytes # (auto) 0.6 uL; Monocytes % (auto) 12.5 % (0.0-12.0); Neutrophils # (auto) 3.1 uL; Neutrophils % (auto) 67.9 % (37.0-80.0); Nucleated Red Blood Cells % 0.2 %; Platelet Count (auto) 120 10^3/uL (140-450); Red Blood Cells 4.21 10^6/uL (4.0-5.20); Red Cell Distribution Width 16.1 % (11.8-14.3); White Blood Cell 4.5 10^3/uL (4.4-10.8)
--- NOTE | 2018-12-19 06:49 | NUR ---
Call received from hematology regarding critical Trop of 1.020 will page hospitalist
--- NOTE | 2018-12-19 06:50 | NUR ---
Critical Trop 1.020 Paged Hospitalist Jourdan for critical Trop of 1.020 Awaiting call back
--- NOTE | 2018-12-19 07:30 | NUR ---
Endorsed care to day shift RN, Aware of Critical Trop 1.020 no call back form hospitalist
[2018-12-19 09:59] VITALS: BP 145/98
[2018-12-19] MEDS: POTASSIUM CHL 20 Meq TABLET PO SCH ×2 (10:00→10:29)
[2018-12-19] MEDS: FUROSEMIDE 40 MG TAB PO SCH ×2 (10:00→10:29)
[2018-12-19] MEDS ORDERED: FAMOTIDINE 20 MG TAB PO SCH (10:00)
[2018-12-19] MEDS ORDERED: FUROSEMIDE 40 MG TAB PO SCH (10:00)
[2018-12-19] MEDS ORDERED: LEVOFLOXACIN 500MG 100 ML IV SCH (10:00)
[2018-12-19] MEDS: CARVEDILOL 3.125 MG TAB PO SCH ×2 (10:28→18:45)
[2018-12-19] MEDS: FAMOTIDINE 20 MG TAB PO SCH ×3 (10:29→21:10)
[2018-12-19] MEDS: NITROFURANTOIN (MONO) 100 mg CAP PO SCH ×2 (10:29→21:00)
[2018-12-19] MEDS: ASPirin 81 mg TAB PO SCH (10:29)
[2018-12-19 10:42] LABS: BUN/Creatinine Ratio 23.1; Calcium 8.4 mg/dL (8.5-10.1); Potassium 3.9 mmol/L (3.5-5.1)
[2018-12-19 16:02] VITALS: BP 135/88
[2018-12-19 17:00] VITALS: BP 140/87
[2018-12-19] MEDS ORDERED: RIVAROXABAN 20 MG TAB PO SCH (18:00)
[2018-12-19] MEDS: ATORVASTATIN 20 MG TAB PO SCH (21:00)
[2018-12-19 22:00] VITALS: BP 128/87
[2018-12-20 05:11] VITALS: BP 131/77
--- NOTE | 2018-12-20 07:30 | NUR ---
Opening Shift Note Assuming care of patient at this time. Patient is awake and alert. Patient denies pain. Patient shows no signs or symptoms of shortness of breath. Instructed patient on the plan of care for today and to call for assistance as needed. Call light within reach. Will continue to round hourly and as needed.
[2018-12-20] MEDS: CARVEDILOL 3.125 MG TAB PO SCH ×2 (08:00→18:04)
[2018-12-20 08:33] VITALS: BP 112/74
[2018-12-20] MEDS: FAMOTIDINE 20 MG TAB PO SCH ×2 (10:00→21:54)
[2018-12-20] MEDS: FUROSEMIDE 40 MG TAB PO SCH (10:00)
[2018-12-20] MEDS: POTASSIUM CHL 20 Meq TABLET PO SCH (10:08)
[2018-12-20] MEDS: NITROFURANTOIN (MONO) 100 mg CAP PO SCH ×2 (10:08→22:06)
[2018-12-20] MEDS: ASPirin 81 mg TAB PO SCH (10:08)
[2018-12-20] MEDS: FOLIC ACID 1 MG, MULTIPLE VITAMIN 10 ML, MAGNESIUM SULF SDV 50% 8 MEQ, THIAMINE INJ 100... INJ SCH ×5 (12:30)
--- NOTE | 2018-12-20 12:32 | NUR ---
at bedside Dr. Milton at bedside discussing plan of care with patient and this RN. Dr. Roque will now be on board for cardio, planning a left heart cath for tomorrow.
--- NOTE | 2018-12-20 12:35 | NUR ---
High Heart Rate Patient's heart rate is sustaining in the 130s to 140s. Dr. Milton at bedside and aware.
[2018-12-20 12:39] VITALS: BP 128/82
[2018-12-20 17:00] VITALS: BP 139/92
--- NOTE | 2018-12-20 17:48 | NUR ---
IV insertion IV access obtained, via clean sterile technique by inserting 22 gauge catheter at left hand after 1 attempt. IV secured properly. No trauma to site. Patient tolerated well.
--- NOTE | 2018-12-20 17:49 | NUR ---
[employer] Talked to corporate representative from [employer]. Per corporate representative, they will come and check patient's pacemaker tomorrow. Notified corporate representative that patient has a procedure with Dr. Roque in the morning at approximately 0900. Crab Butcher is aware and will have it checked at about 0730 tomorrow morning.
--- NOTE | 2018-12-20 17:59 | NUR ---
Elevated Trops Dr. Milton is aware of patient's elevated trops x3. Addendum: 12/20/18 at 1800 by EFRAÍN MONTEMAYOR RN RN Dr. Milton aware at 1234 while making rounds.
--- NOTE | 2018-12-20 19:03 | NUR ---
Closing Shift Note Patient is resting in bed. Patient aware of procedure tomorrow and to not eat or drink anything after midnight. Patient denies pain and shows no signs or symptoms of shortness of breath. Report given. Will endorse care to the hourly shift manager Vidal HARTLEY.
--- NOTE | 2018-12-20 19:50 | NUR ---
open note assumed care of pt. upon entering room pt awake, alert and oriented x4. pt on room air, no distress noted. pt bed locked, low and 2x rails up. pt updated on plan of care, aware of procedure to be done in the AM and NPO status after midnight. pt had no additional questions. call light in reach, will round q1hr and prn.
[2018-12-20 21:00] VITALS: BP 123/80
[2018-12-20] MEDS: ATORVASTATIN 20 MG TAB PO SCH (21:54)
[2018-12-20] MEDS: FUROSEMIDE 40 MG/4 ML VIAL IV SCH (22:06)
--- NOTE | 2018-12-21 00:58 | NUR ---
pt requests to be unhooked from IV. pt educated on the IVF and its uses, pt stated she understands, but will continue it in the morning.
[2018-12-21 04:30] VITALS: BP 116/78
[2018-12-21] MEDS: FUROSEMIDE 40 MG/4 ML VIAL IV SCH ×2 (05:47→14:00)
[2018-12-21 06:45] LABS: Basophils # (auto) 0 uL; Basophils % (auto) 0.4 % (0.0-2.0); Eosinophils # (auto) 0.1 uL; Eosinophils % (auto) 2.2 % (0.0-7.0); Hematocrit 48.1 % (36.0-46.0); Hemoglobin 16.3 g/dL (12.2-16.2); Lymphocytes # (auto) 0.2 uL; Lymphocytes % (auto) 3.9 % (10.0-50.0); Mean Corpuscular Hemoglobin 33.8 pg (28.0-32.0); Mean Corpuscular Hgb Conc. 33.8 g/dL (32.0-36.0); Mean Corpuscular Volume 100.2 fL (80.0-100.0); Monocytes # (auto) 0.5 uL; Monocytes % (auto) 8.9 % (0.0-12.0); Neutrophils # (auto) 5.2 uL; Neutrophils % (auto) 84.6 % (37.0-80.0); Nucleated Red Blood Cells % 0.1 %; Platelet Count (auto) 116 10^3/uL (140-450); Red Cell Distribution Width 15.7 % (11.8-14.3); White Blood Cell 6.1 10^3/uL (4.4-10.8)
[2018-12-21 06:59] LABS: Calcium 8.8 mg/dL (8.5-10.1); Potassium 3.3 mmol/L (3.5-5.1)
[2018-12-21 07:02] LABS: BUN/Creatinine Ratio 11.9
[2018-12-21] MEDS ORDERED: LIDOCAINE 2%HCL (LOCAL ANESTH.) INJ 20ML MDV ONE (07:21)
[2018-12-21] MEDS ORDERED: IOHEXOL 350 MG/ML 100ML IJ ONE (07:21)
[2018-12-21] MEDS ORDERED: HEPARIN IN NS 1000Units/500mL 1,500 ML ONE (07:21)
--- NOTE | 2018-12-21 07:21 | NUR ---
Patient off unit to slab lifting engineer via hospital bed. Respirations even and unlabored, no distress noted.
[2018-12-21] MEDS ORDERED: VERAPAMIL 2.5MG/ML INJ 2ML VIAL IV ONE (08:09)
[2018-12-21] MEDS ORDERED: ANGIOMAX 250 MG VIAL IV ONE (08:09)
[2018-12-21] MEDS ORDERED: fentaNYL CITRATE 100 MCG/2 ML VL ONE (08:09)
[2018-12-21] MEDS ORDERED: MIDAZOLAM HCL 1MG/1ML-2 ML VIAL ONE (08:09)
[2018-12-21] MEDS ORDERED: SODIUM CHL 0.9% 0 ML ONE (08:09)
[2018-12-21] MEDS ORDERED: IODIXANOL 320MG/ML 100ML BTL IV ONE (08:22)
[2018-12-21] MEDS ORDERED: HEPARIN SODIUM (PORCINE) 5000 UNITS/ML 1ML VIAL ONE (08:36)
[2018-12-21 09:00] LABS: Free T4 (Free Thyroxine) 1.35 ng/dL (0.89-1.76)
[2018-12-21 09:01] LABS: Folate (Folic Acid) > 24.00 ng/mL (5.38-24)
--- NOTE | 2018-12-21 09:35 | NUR ---
Patient returned to unit via hospital bed Report received from ODILIA Schmitz. LUKASMONA brought to bed 280B following left Cardiac catheterization, on athletic monitor. Catheterization site assessed for any bleeding, redness or swelling. Left radial vascu-band device in place. Pulses on affected arm assessed for positive tissue perfusion. Patient instructed on need to notify staff immediately if any pain, burning or wetness to site, and any lower back pain. All questions and concerns addressed, patient verbalized understanding of all education and instruction.
--- NOTE | 2018-12-21 09:45 | NUR ---
2ml of air removed from Vascu-band per MD's order no bleeding noted. Patient tolerated well.
[2018-12-21] MEDS: FAMOTIDINE 20 MG TAB PO SCH (10:00)
--- NOTE | 2018-12-21 10:02 | NUR ---
2ml of air removed from Vascu-band per MD's order no bleeding noted. Patient tolerated well.
[2018-12-21 10:05] VITALS: BP 91/63
--- NOTE | 2018-12-21 10:15 | NUR ---
2ml of air removed from Vascu-band per MD's order no bleeding noted. Patient tolerated well.
[2018-12-21] MEDS: NITROFURANTOIN (MONO) 100 mg CAP PO SCH (10:20)
[2018-12-21] MEDS: ASPirin 81 mg TAB PO SCH (10:20)
[2018-12-21] MEDS: POTASSIUM CHL 20 Meq TABLET PO SCH (10:20)
--- NOTE | 2018-12-21 10:35 | NUR ---
2ml of air removed from Vascu-band per MD's order no bleeding noted. Patient tolerated well.
--- NOTE | 2018-12-21 10:55 | NUR ---
2ml of air removed from Vascu-band per MD's order no bleeding noted. Patient tolerated well.
--- NOTE | 2018-12-21 11:15 | NUR ---
2ml of air removed from Vascu-band per MD's order no bleeding noted. Patient tolerated well.
--- NOTE | 2018-12-21 11:30 | NUR ---
2ml of air removed from Vascu-band per MD's order no bleeding noted. Patient tolerated well.
--- NOTE | 2018-12-21 11:40 | NUR ---
Vascu-band removed no bleeding noted. Dressing applied. Patient tolerated well.
[2018-12-21] MEDS: FOLIC ACID 1 MG, MULTIPLE VITAMIN 10 ML, MAGNESIUM SULF SDV 50% 8 MEQ, THIAMINE INJ 100... INJ SCH ×5 (12:00)
[2018-12-21 13:00] VITALS: BP 108/75
[2018-12-21 15:33] VITALS: BP 116/78
--- NOTE | 2018-12-21 16:18 | NUR ---
Discharge Discharge education and paperwork provided to the patient per MD's orders. Patient verbalized understanding. IV removed with clean technique, catheter intact. Dressing applied. Patient tolerated well, no trauma to site. Telemonitor removed and returned. Left radial assess site is clean, dry and intact with circulation intact. Patient collected all personal belongings. Respirations are even and unlabored, no distress noted. Addendum: 12/21/18 at 1626 by Jodie Dunbar RN Home medication held in hospital pharmacy returned to the patient. Prescriptions filled by [facility] and delivered to bedside.
--- NOTE | 2018-12-21 16:23 | NUR ---
Patient taken to private vehicle via wheelchair by staff member with all personal belongings. Respirations even and unlabored, no distress noted. Dressing to the left wrist is clean, dry and intact.
[2018-12-21] MEDS ORDERED: CARVEDILOL 12.5 MG TAB PO SCH (18:00)
== END 2018-12-21 16:22 | disposition home or self-care (01) | DRG 192 ==
LOC: ER 19:31 → TELE 19:32 → TELE-WESTW 23:46
PROVIDERS: ADMIT Nurse Practitioner; ATTEND Internal Medicine
PROC: 4A023N7 Measurement of Cardiac Sampling and Pressure, Left Heart, Percutaneous Approach (ICD-10-PCS; principal; 2018-12-21)
PROC: B2111ZZ Fluoroscopy of Multiple Coronary Arteries using Low Osmolar Contrast (ICD-10-PCS; 2018-12-21)
PROC: B2151ZZ Fluoroscopy of Left Heart using Low Osmolar Contrast (ICD-10-PCS; 2018-12-21)
DX: T82.118A Breakdown (mechanical) of other cardiac electronic device, initial encounter (principal); I21.4 Non-ST elevation (NSTEMI) myocardial infarction; I50.43 Acute on chronic combined systolic (congestive) and diastolic (congestive) heart failure; D69.6 Thrombocytopenia, unspecified; I42.9 Cardiomyopathy, unspecified; I11.0 Hypertensive heart disease with heart failure; N39.0 Urinary tract infection, site not specified; E11.9 Type 2 diabetes mellitus without complications; K21.9 Gastro-esophageal reflux disease without esophagitis; Y83.8 Other surgical procedures as the cause of abnormal reaction of the patient, or of later complication, without mention of misadventure at the time of the procedure; E78.5 Hyperlipidemia, unspecified; F10.20 Alcohol dependence, uncomplicated; F41.9 Anxiety disorder, unspecified; I25.10 Atherosclerotic heart disease of native coronary artery without angina pectoris; Y92.89 Other specified places as the place of occurrence of the external cause; Z82.3 Family history of stroke; Z82.49 Family history of ischemic heart disease and other diseases of the circulatory system; Z95.810 Presence of automatic (implantable) cardiac defibrillator
CPT/HCPCS: 36415; 71046; 80048; 80053; 80307; 80320; 81001; 82607; 82746; 83036; 83735; 83880; 84439; 84443; 84484; 85025; 85610; 85730; 86850; 86900; 86901; 93005; 93306; 94761; 96361; 96372; 96374; 96375; G0378; J2250; J2405; Q9967

== ENCOUNTER 2020-07-08 09:43 | Inpatient (IN) | payer MEDICAID ==
[~2020-07-08] VITALS: Ht 167.6 cm; Wt 78.3 kg
[~2020-07-08 09:43] MED LIST changes: -RIVA20TA PO
[2020-07-08] MEDS ORDERED: VANCOMYCIN 1GM/250ML 250 ML IV ONE (10:00)
[2020-07-08] MEDS ORDERED: SODIUM CHLORIDE 0.9% 1,000 ML IV ONE ×2 (10:00)
[2020-07-08 11:38] LABS: Albumin 1.3 g/dL (3.4-5.0); Calcium 7.6 mg/dL (8.5-10.1); Potassium 3.6 mmol/L (3.5-5.1)
[2020-07-08 11:42] LABS: Basophils # (auto) 0 10 ^3/uL (0-0.2); Basophils % (auto) 0.6 % (0.0-2.0); Eosinophils # (auto) 0 10 ^3/uL (0-0.8); Eosinophils % (auto) 0.6 % (0.0-7.0); Hematocrit 38.7 % (36.0-46.0); Hemoglobin 13.1 g/dL (12.2-16.2); Lymphocytes # (auto) 0.3 10 ^3/uL (0.4-5.4); Lymphocytes % (auto) 5.6 % (10.0-50.0); Mean Corpuscular Hemoglobin 38.6 pg (28.0-32.0); Mean Corpuscular Volume 113.5 fL (80.0-100.0); Monocytes # (auto) 0.6 10 ^3/uL (0-1.3); Monocytes % (auto) 9.8 % (0.0-12.0); Neutrophils # (auto) 4.9 10 ^3/uL (1.6-8.6); Neutrophils % (auto) 83.4 % (37.0-80.0); Nucleated Red Blood Cells % 0.8 %; Platelet Count (auto) 121 10^3/uL (140-450); Red Blood Cells 3.41 10^6/uL (4.0-5.20); Red Cell Distribution Width 15.5 % (11.8-14.3); White Blood Cell 5.9 10^3/uL (4.4-10.8)
[2020-07-08 11:43] LABS: BUN/Creatinine Ratio 18.1; Total Protein 6.9 g/dL (6.4-8.2)
[2020-07-08] MEDS: NOREPINEPHRINE 8 MG/250ML KIT 250 ML IV SCH ×2 (11:45→11:57)
[2020-07-08] MEDS ORDERED: NOREPINEPHRINE 8 MG/250ML KIT 250 ML IV ONE (11:51)
[2020-07-08 11:58] LABS: Urine Bacteria MANY /hpf (None Seen); Urine Blood TRACE /uL (Negative); Urine Mucus MODERATE (None Seen); Urine Specific Gravity 1.026 (1.001-1.035); Urine WBC 8 /hpf (0 - 5)
[2020-07-08 12:06] LABS: INR 1.87 (0.9-1.15)
[2020-07-08] MEDS ORDERED: MORPHINE SULF INJ 2 MG/ML SYRINGE 1ML IV PRN (15:30)
[2020-07-08] MEDS ORDERED: NITROGLYCERIN 0.4 MG SL TAB SL PRN (15:30)
[2020-07-08] MEDS: metroNIDAZOLE 500MG/100ML 100 ML IV SCH ×2 (16:59→22:00)
[2020-07-08] MEDS: DOPamine 1600MCG/ML D5W 250 ML IV SCH (17:25)
[2020-07-08] MEDS ORDERED: PIPERACILLIN-TAZOB 2.25GM 50 ML IV SCH (18:00)
[2020-07-08] MEDS: AZTREONAM 1GM INJ 1 GM in D5W 5% 50 ML IV SCH (18:12)
[2020-07-08] MEDS: FOLIC ACID 1 MG, MAGNESIUM SULF SDV 50% 8 MEQ, THIAMINE INJ 100 MG in SODIUM CHLORIDE 0... INJ SCH (18:51)
[2020-07-08] MEDS: LACTULOSE 20Gm/30ML SOLN PO SCH (22:00)
[2020-07-09] MEDS: AZTREONAM 1GM INJ 1 GM in D5W 5% 50 ML IV SCH ×3 (02:00→18:00)
[2020-07-09 05:47] LABS: Hemoglobin 12.2 g/dL (12.2-16.2)
[2020-07-09 05:48] LABS: Hematocrit 34.9 % (36.0-46.0); Mean Corpuscular Hemoglobin 39.1 pg (28.0-32.0); Mean Corpuscular Hgb Conc. 35.1 g/dL (32.0-36.0); Mean Corpuscular Volume 111.4 fL (80.0-100.0); Platelet Count (auto) 126 10^3/uL (140-450); Red Blood Cells 3.13 10^6/uL (4.0-5.20); Red Cell Distribution Width 15.5 % (11.8-14.3); White Blood Cell 10.1 10^3/uL (4.4-10.8)
[2020-07-09 06:01] LABS: INR 1.71 (0.9-1.15); Partial Thromboplastin Time 39.2 sec (23.0-31.2)
[2020-07-09 06:14] LABS: Basophils % (manual) 0 (0.0-2.0); Blast Cells 0; Promyelocytes % 0; Reactive Lymphocytes 0
[2020-07-09 06:15] LABS: Albumin 1.2 g/dL (3.4-5.0); BUN/Creatinine Ratio 23.2; Bilirubin, Total 20.1 mg/dL (0.2-1.0); Calcium 6.9 mg/dL (8.5-10.1)
[2020-07-09] MEDS: metroNIDAZOLE 500MG/100ML 100 ML IV SCH ×3 (06:29→21:28)
[2020-07-09 07:50] LABS: Band Neutrophils % (manual) 14; Eosinophils % (manual) 2 (0-7); Lymphocytes % (manual) 5 (10.0-50.0); Metamyelocytes % 1; Monocytes % (manual) 5 (0-12); Myelocytes % 3
[2020-07-09] MEDS: DOPamine 1600MCG/ML D5W 250 ML IV SCH ×2 (09:14→20:59)
[2020-07-09] MEDS: NOREPINEPHRINE 8 MG/250ML KIT 250 ML IV SCH (09:17)
[2020-07-09] MEDS: LACTULOSE 20Gm/30ML SOLN PO SCH ×3 (10:00→20:59)
[2020-07-09 14:19] LABS: Hepatitis A Ab IgM Negative; Hepatitis B Core IgM Negative
[2020-07-09 14:20] LABS: Hepatitis B Surface Antigen Negative (Negative); Hepatitis C Antibody Negative (Negative)
[2020-07-09] MEDS ORDERED: ALBUMIN 5% 250 ML IV ONE (14:45)
[2020-07-09] MEDS: POTASSIUM CHL 20MEQ/100ML 100 ML IV SCH ×3 (15:15→19:15)
[2020-07-09] MEDS: PHENYLEPHRINE INJ 40 MG in SODIUM CHL 0.9% 246 ML IV SCH (16:30)
[2020-07-09] MEDS ORDERED: POTASSIUM CHL 20MEQ/100ML 100 ML IV ONE (16:30)
[2020-07-09] MEDS ORDERED: MAGNESIUM SULFATE 1GM/100ML 100 ML IV ONE (16:30)
[2020-07-09] MEDS ORDERED: VASOPRESSIN 50 UNITS in D5W 5% 247.5 ML IV SCH (16:30)
[2020-07-09] MEDS ORDERED: AMIODARONE 450mg/250ml AE 250 ML IV SCH ×2 (16:45→22:45)
[2020-07-09] MEDS ORDERED: AMIODARONE HCL 150 MG in D5W 5% 100 ML IV ONE (16:45)
[2020-07-09 17:21] LABS: Alcohol, Urine < 3.0 mg/dL (0-10); Amphetamine Screen, Urine NEGATIVE (NEGATIVE); Barbiturate Scree,Urine NEGATIVE (NEGATIVE); Benzodiazephine Screen, Urine NEGATIVE (NEGATIVE); Cannabinoid Screen, Urine NEGATIVE (NEGATIVE); Cocaine Screen, Urine NEGATIVE (NEGATIVE); Opiate Scree,Urine NEGATIVE (NEGATIVE); Phencyclidine Screen, Urine NEGATIVE (NEGATIVE)
[2020-07-09] MEDS: FOLIC ACID 1 MG, MAGNESIUM SULF SDV 50% 8 MEQ, THIAMINE INJ 100 MG in SODIUM CHLORIDE 0... INJ SCH (18:00)
[2020-07-09] MEDS: rifAXIMin 550 MG TAB PO SCH (20:58)
[2020-07-09] MEDS ORDERED: PHENYLEPHRINE IV 500 ML IV ONE (22:35)
[2020-07-10] MEDS: LACTULOSE 20Gm/30ML SOLN PO SCH (00:52)
[2020-07-10] MEDS: AZTREONAM 1GM INJ 1 GM in D5W 5% 50 ML IV SCH ×3 (01:05→18:13)
[2020-07-10] MEDS: metroNIDAZOLE 500MG/100ML 100 ML IV SCH ×3 (05:26→21:22)
[2020-07-10 06:49] LABS: BUN/Creatinine Ratio 28.1
[2020-07-10 06:55] LABS: Potassium 2.6 mmol/L (3.5-5.1)
[2020-07-10 06:56] LABS: Calcium 5.7 mg/dL (8.5-10.1)
[2020-07-10] MEDS ORDERED: POTASSIUM CHL 20MEQ/100ML 100 ML IV ONE (07:00)
[2020-07-10] MEDS ORDERED: CALCIUM GLUC 4.65meq/50ml D5AE 50 ML IV ONE (07:00)
[2020-07-10 08:38] LABS: Hemoglobin 9.5 g/dL (12.2-16.2); Platelet Count (auto) 88 10^3/uL (140-450)
[2020-07-10 08:41] LABS: Mean Corpuscular Hemoglobin 38.8 pg (28.0-32.0); Mean Corpuscular Volume 114.1 fL (80.0-100.0); Red Blood Cells 2.46 10^6/uL (4.0-5.20); Red Cell Distribution Width 16.1 % (11.8-14.3); White Blood Cell 10.5 10^3/uL (4.4-10.8)
[2020-07-10 08:48] LABS: Basophils % (manual) 0 (0.0-2.0); Blast Cells 0; Eosinophils % (manual) 0 (0-7); Promyelocytes % 0; Reactive Lymphocytes 0
[2020-07-10] MEDS: PHENYLEPHRINE INJ 40 MG in SODIUM CHL 0.9% 246 ML IV SCH (09:10)
[2020-07-10] MEDS: rifAXIMin 550 MG TAB PO SCH ×2 (10:00→22:58)
[2020-07-10] MEDS: NOREPINEPHRINE 8 MG/250ML KIT 250 ML IV SCH (11:53)
[2020-07-10 12:01] LABS: Band Neutrophils % (manual) 13; Lymphocytes % (manual) 3 (10.0-50.0); Metamyelocytes % 4; Monocytes % (manual) 11 (0-12); Myelocytes % 1
[2020-07-10] MEDS ORDERED: POTASSIUM CHLORIDE 60 MEQ, LIDOCAINE 1% (LOCAL ANESTH.) 6 ML in SODIUM CHL 0.9% 500 ML IV ONE (12:15)
[2020-07-10] MEDS: LACTULOSE 10g/15ml SOLN PR SCH ×2 (12:20→18:13)
[2020-07-10] MEDS: FOLIC ACID 1 MG, MAGNESIUM SULF SDV 50% 8 MEQ, THIAMINE INJ 100 MG in SODIUM CHLORIDE 0... INJ SCH (16:31)
[2020-07-11] VITALS (83 sets, daily range): BP systolic 82–125; BP diastolic 42–64
[2020-07-11] MEDS: LACTULOSE 10g/15ml SOLN PR SCH ×3 (00:36→12:20)
[2020-07-11] MEDS: PHENYLEPHRINE INJ 40 MG in SODIUM CHL 0.9% 246 ML IV SCH ×2 (01:50→18:30)
[2020-07-11] MEDS: AZTREONAM 1GM INJ 1 GM in D5W 5% 50 ML IV SCH ×2 (02:00→10:00)
[2020-07-11 04:57] LABS: Hematocrit 36.6 % (36.0-46.0); INR 1.97 (0.9-1.15); Mean Corpuscular Hemoglobin 38.2 pg (28.0-32.0); Mean Corpuscular Hgb Conc. 32.9 g/dL (32.0-36.0); Mean Corpuscular Volume 116.2 fL (80.0-100.0); Platelet Count (auto) 106 10^3/uL (140-450); Red Blood Cells 3.15 10^6/uL (4.0-5.20); Red Cell Distribution Width 16.4 % (11.8-14.3); White Blood Cell 12.9 10^3/uL (4.4-10.8)
[2020-07-11 05:04] LABS: Basophils % (manual) 0 (0.0-2.0); Blast Cells 0; Eosinophils % (manual) 0 (0-7); Promyelocytes % 0; Reactive Lymphocytes 0
[2020-07-11 05:06] LABS: Albumin 1.4 g/dL (3.4-5.0); Calcium 6.8 mg/dL (8.5-10.1); Potassium 4.3 mmol/L (3.5-5.1)
[2020-07-11 05:11] LABS: BUN/Creatinine Ratio 23.3; Bilirubin, Total 22.5 mg/dL (0.2-1.0); Total Protein 5.7 g/dL (6.4-8.2)
[2020-07-11] MEDS: metroNIDAZOLE 500MG/100ML 100 ML IV SCH ×2 (06:04→13:43)
[2020-07-11 06:38] LABS: Band Neutrophils % (manual) 21; Lymphocytes % (manual) 7 (10.0-50.0); Metamyelocytes % 2; Monocytes % (manual) 9 (0-12); Myelocytes % 1
[2020-07-11] MEDS: rifAXIMin 550 MG TAB PO SCH ×2 (09:52→21:06)
[2020-07-11] MEDS: NOREPINEPHRINE 8 MG/250ML KIT 250 ML IV SCH (11:19)
[2020-07-11] MEDS: MEROPENEM 1GM IVPB 100 ML IV SCH (18:06)
[2020-07-11] MEDS: chlordiazePOXIDE HCL 5 MG CAP PO PRN (18:07)
[2020-07-11] MEDS: LACTULOSE 20Gm/30ML SOLN PO SCH (18:07)
[2020-07-11] MEDS: FOLIC ACID 1 MG, MAGNESIUM SULF SDV 50% 8 MEQ, THIAMINE INJ 100 MG in SODIUM CHLORIDE 0... INJ SCH (18:18)
[2020-07-12] VITALS (87 sets, daily range): BP systolic 75–131; BP diastolic 46–72
[2020-07-12] MEDS: NOREPINEPHRINE 8 MG/250ML KIT 250 ML IV SCH ×2 (01:00→23:42)
[2020-07-12 04:51] LABS: Mean Corpuscular Hemoglobin 38.3 pg (28.0-32.0); Mean Corpuscular Hgb Conc. 32.7 g/dL (32.0-36.0)
[2020-07-12 04:54] LABS: Hematocrit 36.6 % (36.0-46.0); Mean Corpuscular Volume 116.9 fL (80.0-100.0); Platelet Count (auto) 111 10^3/uL (140-450); Red Blood Cells 3.13 10^6/uL (4.0-5.20); Red Cell Distribution Width 16.2 % (11.8-14.3); White Blood Cell 15.2 10^3/uL (4.4-10.8)
[2020-07-12 05:02] LABS: Potassium 3.7 mmol/L (3.5-5.1)
[2020-07-12 05:05] LABS: INR 2.24 (0.9-1.15)
[2020-07-12 05:13] LABS: Albumin 1.3 g/dL (3.4-5.0); BUN/Creatinine Ratio 19.1; Bilirubin, Total 22.3 mg/dL (0.2-1.0); Calcium 6.7 mg/dL (8.5-10.1); Total Protein 5.5 g/dL (6.4-8.2)
[2020-07-12 05:26] LABS: Basophils % (manual) 0 (0.0-2.0); Blast Cells 0; Eosinophils % (manual) 0 (0-7); Promyelocytes % 0; Reactive Lymphocytes 0
[2020-07-12] MEDS: MEROPENEM 1GM IVPB 100 ML IV SCH ×2 (06:00→18:44)
[2020-07-12] MEDS: LACTULOSE 20Gm/30ML SOLN PO SCH ×5 (06:00→23:42)
[2020-07-12 06:50] LABS: Band Neutrophils % (manual) 10; Lymphocytes % (manual) 4 (10.0-50.0); Metamyelocytes % 1; Monocytes % (manual) 17 (0-12); Myelocytes % 2
[2020-07-12] MEDS ORDERED: MORPHINE SULF INJ 2 MG/ML SYRINGE 1ML IV PRN (09:00)
[2020-07-12] MEDS ORDERED: LORazepam 2MG/ML-1ML VIAL IV PRN (09:15)
[2020-07-12] MEDS ORDERED: LORazepam 2MG/ML-1ML VIAL ONE (09:27)
[2020-07-12] MEDS ORDERED: MORPHINE SULF INJ 2 MG/ML SYRINGE 1ML ONE (09:27)
[2020-07-12] MEDS: rifAXIMin 550 MG TAB PO SCH ×2 (10:33→21:22)
[2020-07-12] MEDS: chlordiazePOXIDE HCL 5 MG CAP PO PRN (10:33)
[2020-07-12] MEDS: PHENYLEPHRINE INJ 40 MG in SODIUM CHL 0.9% 246 ML IV SCH ×2 (11:10→22:09)
[2020-07-12] MEDS ORDERED: POTASSIUM CHLORIDE 60 MEQ, LIDOCAINE 1% (LOCAL ANESTH.) 6 ML in SODIUM CHL 0.9% 500 ML IV PRN (16:30)
[2020-07-12] MEDS: FOLIC ACID 1 MG, MAGNESIUM SULF SDV 50% 8 MEQ, THIAMINE INJ 100 MG in SODIUM CHLORIDE 0... INJ SCH (18:24)
[2020-07-13] VITALS (87 sets, daily range): BP systolic 80–113; BP diastolic 33–82
[2020-07-13 04:11] LABS: Mean Corpuscular Volume 116.2 fL (80.0-100.0)
[2020-07-13 04:15] LABS: Hematocrit 38.9 % (36.0-46.0); Hemoglobin 12.8 g/dL (12.2-16.2); Mean Corpuscular Hemoglobin 38.1 pg (28.0-32.0); Mean Corpuscular Hgb Conc. 32.8 g/dL (32.0-36.0); Platelet Count (auto) 138 10^3/uL (140-450); Red Blood Cells 3.35 10^6/uL (4.0-5.20); Red Cell Distribution Width 16.5 % (11.8-14.3); White Blood Cell 21.1 10^3/uL (4.4-10.8)
[2020-07-13 04:23] LABS: Basophils % (manual) 0 (0.0-2.0); Blast Cells 0; Eosinophils % (manual) 0 (0-7); Promyelocytes % 0; Reactive Lymphocytes 0
[2020-07-13 04:31] LABS: BUN/Creatinine Ratio 14.9; Calcium 6.6 mg/dL (8.5-10.1); Potassium 3.8 mmol/L (3.5-5.1)
[2020-07-13 05:20] LABS: Band Neutrophils % (manual) 11; Lymphocytes % (manual) 5 (10.0-50.0); Metamyelocytes % 2; Monocytes % (manual) 12 (0-12); Myelocytes % 6
[2020-07-13] MEDS: MEROPENEM 1GM IVPB 100 ML IV SCH ×2 (05:35→18:57)
[2020-07-13] MEDS: NOREPINEPHRINE 8 MG/250ML KIT 250 ML IV SCH ×3 (05:36→22:18)
[2020-07-13] MEDS: LACTULOSE 20Gm/30ML SOLN PO SCH ×5 (05:36→22:03)
[2020-07-13] MEDS: PHENYLEPHRINE INJ 40 MG in SODIUM CHL 0.9% 246 ML IV SCH ×2 (05:37→22:06)
[2020-07-13] MEDS: rifAXIMin 550 MG TAB PO SCH ×2 (10:00→22:03)
[2020-07-13] MEDS ORDERED: LACTULOSE 20Gm/30ML SOLN PO SCH (14:30)
[2020-07-13] MEDS: FOLIC ACID 1 MG, MAGNESIUM SULF SDV 50% 8 MEQ, THIAMINE INJ 100 MG in SODIUM CHLORIDE 0... INJ SCH ×2 (18:00→18:59)
[2020-07-13] MEDS ORDERED: SODIUM CHLORIDE 0.9% 1,000 ML IV ONE (20:30)
[2020-07-13 23:03] LABS: Urine Bacteria MOD /hpf (None Seen); Urine Blood 2+ /uL (Negative); Urine Budding Yeast MODERATE /hpf (None Seen); Urine Mucus FEW (None Seen); Urine Specific Gravity 1.018 (1.001-1.035); Urine WBC 25 /hpf (0 - 5); Urine WBC Clumps PRESENT /hpf (None Seen)
[2020-07-14] VITALS (81 sets, daily range): BP systolic 36–120; BP diastolic 14–88
[2020-07-14] MEDS: NOREPINEPHRINE 8 MG/250ML KIT 250 ML IV SCH ×3 (01:51→21:00)
[2020-07-14 03:41] LABS: Protein, Urine 111.2 mg/dL (0.0-11.9)
[2020-07-14] MEDS: LACTULOSE 20Gm/30ML SOLN PO SCH ×6 (04:37→22:00)
[2020-07-14 05:22] LABS: Hematocrit 40.2 % (36.0-46.0); Hemoglobin 13.2 g/dL (12.2-16.2); Mean Corpuscular Hemoglobin 38.1 pg (28.0-32.0); Mean Corpuscular Hgb Conc. 32.9 g/dL (32.0-36.0); Mean Corpuscular Volume 115.7 fL (80.0-100.0); Platelet Count (auto) 121 10^3/uL (140-450); Red Blood Cells 3.48 10^6/uL (4.0-5.20); Red Cell Distribution Width 17.1 % (11.8-14.3); White Blood Cell 27.6 10^3/uL (4.4-10.8)
[2020-07-14] MEDS: MEROPENEM 1GM IVPB 100 ML IV SCH ×2 (06:00→17:44)
[2020-07-14 06:51] LABS: INR 2.23 (0.9-1.15)
[2020-07-14 07:49] LABS: Basophils % (manual) 0 (0.0-2.0); Blast Cells 0; Eosinophils % (manual) 0 (0-7); Promyelocytes % 0; Reactive Lymphocytes 0
[2020-07-14 08:33] LABS: Albumin 1.2 g/dL (3.4-5.0)
[2020-07-14 08:41] LABS: Alanine Aminotransferase 64 U/L (13-56); Alkaline Phosphatase 191 U/L (45-117); Aspartate Aminotransferase 175 U/L (15-37); Bilirubin, Total 22.8 mg/dL (0.2-1.0); Total Protein 5.6 g/dL (6.4-8.2)
[2020-07-14 08:47] LABS: Band Neutrophils % (manual) 3; Lymphocytes % (manual) 4 (10.0-50.0); Metamyelocytes % 2; Monocytes % (manual) 4 (0-12); Myelocytes % 3
[2020-07-14 08:56] LABS: BUN/Creatinine Ratio 16.4; Calcium 6.7 mg/dL (8.5-10.1); Potassium 3.2 mmol/L (3.5-5.1)
[2020-07-14 08:57] LABS: Bilirubin, Direct > 16.0 mg/dL (0-0.2)
[2020-07-14] MEDS: PHENYLEPHRINE INJ 40 MG in SODIUM CHL 0.9% 246 ML IV SCH ×2 (09:00→21:00)
[2020-07-14] MEDS: rifAXIMin 550 MG TAB PO SCH ×2 (09:31→22:00)
[2020-07-14] MEDS: SOD CHL 0.45% 1,000 ML IV SCH (10:59)
[2020-07-14] MEDS ORDERED: POTASSIUM CHL 20MEQ/100ML 100 ML IV ONE (12:00)
[2020-07-14] MEDS ORDERED: SODIUM BICARBONATE 8.4 % INJ 50ML VIAL IV ONE ×2 (13:15→20:15)
[2020-07-14] MEDS ORDERED: SUCCINYLCHOLINE CHLORIDE 20 MG/ML 10ML VIAL IV ONE (18:40)
[2020-07-14] MEDS ORDERED: ETOMIDATE (2MG/ML) 20ML VIAL IV ONE (18:40)
[2020-07-14] MEDS ORDERED: EPINEPHrine HCL 250 ML IV SCH (18:45)
[2020-07-14] MEDS ORDERED: PHENYLEPHRINE IV 500 ML IV ONE (18:47)
[2020-07-14] MEDS: VASOPRESSIN 50 UNITS in D5W 5% 247.5 ML IV SCH (18:50)
[2020-07-14] MEDS ORDERED: fentaNYL Drip 2500mCg/250mlNS 250 ML IV ONE (18:59)
[2020-07-14] MEDS ORDERED: MIDAZOLAM DRIP 50 mg/50mL 50 ML IV SCH (19:00)
[2020-07-14] MEDS ORDERED: fentaNYL Drip 2500mCg/250mlNS 250 ML IV SCH (19:00)
[2020-07-14] MEDS ORDERED: EPINEPHrine HCL 0 ML IV ONE (19:03)
[2020-07-14 19:04] LABS: BUN/Creatinine Ratio 16.4
[2020-07-14 19:24] LABS: Calcium 5.5 mg/dL (8.5-10.1)
[2020-07-14] MEDS: EPINEPHrine HCL INJECTION 8 MG in D5W 5% 242 ML IV SCH (19:35)
[2020-07-14] MEDS: DOPamine 1600MCG/ML D5W 250 ML IV SCH (20:02)
[2020-07-14] MEDS ORDERED: DOPamine 1600MCG/ML D5W 250 ML IV ONE (20:02)
[2020-07-14] MEDS ORDERED: SODIUM BICARBONATE 8.4% INJ 50ML SYRINGE ONE (20:15)
[2020-07-15] VITALS (10 sets, daily range): BP systolic 45–116; BP diastolic 18–38
[2020-07-15] MEDS: NOREPINEPHRINE 8 MG/250ML KIT 250 ML IV SCH (01:00)
[2020-07-15] MEDS: PHENYLEPHRINE INJ 40 MG in SODIUM CHL 0.9% 246 ML IV SCH ×2 (01:00→10:25)
[2020-07-15] MEDS: LACTULOSE 20Gm/30ML SOLN PO SCH ×4 (02:00→12:18)
[2020-07-15] MEDS: SOD CHL 0.45% 1,000 ML IV SCH (04:27)
[2020-07-15] MEDS: DOPamine 1600MCG/ML D5W 250 ML IV SCH ×3 (04:28→10:25)
[2020-07-15 05:02] LABS: Hematocrit 39.1 % (36.0-46.0); Hemoglobin 11.2 g/dL (12.2-16.2); Mean Corpuscular Hemoglobin 36.9 pg (28.0-32.0); Mean Corpuscular Hgb Conc. 28.8 g/dL (32.0-36.0); Mean Corpuscular Volume 128.4 fL (80.0-100.0); Platelet Count (auto) 109 10^3/uL (140-450); Red Blood Cells 3.05 10^6/uL (4.0-5.20); Red Cell Distribution Width 18.1 % (11.8-14.3)
[2020-07-15 05:28] LABS: INR 6.64 (0.9-1.15)
[2020-07-15 05:41] LABS: White Blood Cell 34.3 10^3/uL (4.4-10.8)
[2020-07-15 05:42] LABS: Basophils % (manual) 0 (0.0-2.0); Blast Cells 0; Eosinophils % (manual) 0 (0-7); Promyelocytes % 0; Reactive Lymphocytes 0
[2020-07-15] MEDS: EPINEPHrine HCL INJECTION 8 MG in D5W 5% 242 ML IV SCH (06:28)
[2020-07-15] MEDS ORDERED: PHENYLEPHRINE IV 0 ML IV ONE (06:32)
[2020-07-15] MEDS: MEROPENEM 1GM IVPB 100 ML IV SCH (06:47)
[2020-07-15] MEDS: VASOPRESSIN 50 UNITS in D5W 5% 247.5 ML IV SCH (06:50)
[2020-07-15 07:46] LABS: Band Neutrophils % (manual) 6; Lymphocytes % (manual) 5 (10.0-50.0); Metamyelocytes % 1; Monocytes % (manual) 9 (0-12); Myelocytes % 3
[2020-07-15] MEDS: rifAXIMin 550 MG TAB PO SCH (10:00)
[2020-07-15] MEDS ORDERED: EPINEPHrine HCL 1 MG/10 ML SYRG ONE (11:32)
== END 2020-07-15 16:45 | DRG 720 ==
LOC: EDBD 09:43 → ER 09:43 → TELE 15:27 → ICU WEST 07-11 01:39
PROVIDERS: ADMIT Nurse Practitioner Acute Care; ATTEND Internal Medicine Pulmonary Disease
PROC: 06HY33Z Insertion of Infusion Device into Lower Vein, Percutaneous Approach (ICD-10-PCS; principal; 2020-07-08)
PROC: 0W9G3ZZ Drainage of Peritoneal Cavity, Percutaneous Approach (ICD-10-PCS; 2020-07-09)
PROC: 4B02XTZ Measurement of Cardiac Defibrillator, External Approach (ICD-10-PCS; 2020-07-10)
PROC: 5A1935Z Respiratory Ventilation, Less than 24 Consecutive Hours (ICD-10-PCS; 2020-07-14)
PROC: 0BH17EZ Insertion of Endotracheal Airway into Trachea, Via Natural or Artificial Opening (ICD-10-PCS; 2020-07-14)
PROC: 5A12012 Performance of Cardiac Output, Single, Manual (ICD-10-PCS; 2020-07-15)
DX: A41.9 Sepsis, unspecified organism (principal); E43 Unspecified severe protein-calorie malnutrition; N17.0 Acute kidney failure with tubular necrosis; R65.21 Severe sepsis with septic shock; I50.23 Acute on chronic systolic (congestive) heart failure; D69.6 Thrombocytopenia, unspecified; I42.9 Cardiomyopathy, unspecified; E87.2 Acidosis; D68.9 Coagulation defect, unspecified; I13.0 Hypertensive heart and chronic kidney disease with heart failure and stage 1 through stage 4 chronic kidney disease, or unspecified chronic kidney disease; N18.32 Chronic kidney disease, stage 3b; K72.90 Hepatic failure, unspecified without coma; K70.31 Alcoholic cirrhosis of liver with ascites; Z20.822 Contact with and (suspected) exposure to COVID-19; Z51.5 Encounter for palliative care; Z66 Do not resuscitate; I44.7 Left bundle-branch block, unspecified; E87.6 Hypokalemia; F41.9 Anxiety disorder, unspecified; K52.9 Noninfective gastroenteritis and colitis, unspecified; K21.9 Gastro-esophageal reflux disease without esophagitis; F10.20 Alcohol dependence, uncomplicated; Z88.1 Allergy status to other antibiotic agents; Z68.29 Body mass index [BMI] 29.0-29.9, adult; Z86.74 Personal history of sudden cardiac arrest; Z79.899 Other long term (current) drug therapy; Z95.810 Presence of automatic (implantable) cardiac defibrillator; Z82.3 Family history of stroke; Z82.49 Family history of ischemic heart disease and other diseases of the circulatory system
CPT/HCPCS: 10022; 36415; 36600; 49083; 51702; 70450; 71045; 74176; 76700; 76705; 76942; 80048; 80053; 80074; 80076; 80307; 81001; 82010; 82140; 82570; 82805; 82962; 83605; 83735; 83880; 83986; 84100; 84156; 84300; 84443; 84484; 85007; 85025; 85027; 85610; 85730; 86850; 86900; 86901; 87040; 87045; 87070; 87081; 87205; 87426; 87427; 87493; 89051; 92610; 92950; 93005; 93306; 94003; 96361; 96365; 99291; G0378; J0171; J0330; J0610; J2001; J2185; J3480; J3490; J7060